=== PATIENT | female | born 1940 | race Caucasian/White ===

== ENCOUNTER → 2017-01-14 | Outpatient (CLI) | payer MEDICARE ==
--- NOTE | 2017-01-14 17:34 | US ---
EXAMINATION TYPE: US thyroid st tissue head/neck DATE OF EXAM: 01/14/2017 COMPARISON: 03/27/2016 CLINICAL HISTORY: E04.1 Thyroid Nodule. Thyroid nodule GLAND SIZE: Right Lobe: 4.5 x 3.0 x 2.6 cm Overall Parenchyma: heterogenous Left Lobe: 3.8 x 1.0 x 1.2 cm Overall Parenchyma: heterogeneous Isthmus Thickness: 0.3 cm NODULES RIGHT: # of nodules measured on right: 2 1. 0.5 X 0.3 x 0.4 cm hypoechoic solid nodule at the upper pole with well-defined margins. This nod ule is taller than wide and shows intranodular vascularity. Prior size: 0.6 x 0.3 x 0.6 cm 2. 3.0 X 2.8 x 2.9 cm hypoechoic solid nodule at the mid pole with well-defined margins. This nodule is wider than tall and shows intranodular vascularity. Prior size: 3.1 x 2.4 x 2.9 cm LEFT: # of nodules measured on left: 2 1. 0.5 X 0.4 x 0.4 cm hypoechoic cystic nodule at the upper pole with well-defined margins; present with microcalcifications. This nodule is wider than tall and shows no intranodular vascularity. Prior size: 0.5 x 0.4 x 0.4 cm 2. 0.6 X 0.8 x 0.7 cm isoechoic solid nodule at the lower pole with well-defined margins. This nodul e is taller than wide and shows intranodular vascularity. Prior size: 0.8 x 0.6 x 0.8 cm ISTHMUS: # of nodules measured in the isthmus: 0 Bilateral neck scanned, no evidence of lymphadenopathy. Posterior to right lobe: 1.3 x 0.9 x 1.5cm hypoechoic area and 0.8 x 0.5 x 1.2cm hypoechoic area seen , possible parathyroid. IMPRESSION: Multiple findings as above. There is a dominant nodule in the right thyroid lobe without change linda red to last exam. This is consistent with benign disease. No increasing thyroid abnormality seen sinc e last exam.
== END | disposition home or self-care (01) ==
LOC: RADUSWWP 16:34
PROVIDERS: ATTEND Otolaryngology
DX: E04.2 Nontoxic multinodular goiter (principal)
CPT/HCPCS: 76536

== ENCOUNTER → 2017-06-20 | Outpatient (CLI) | payer MEDICARE ==
[2017-06-20 13:09] VITALS: RESP 16; BMI 32.4
[2017-06-20 13:23] VITALS: BP 176/85; PULSE 60; TEMP 97.7
[2017-06-20 14:00] LABS: HGB 13.6 gm/dL (11.4-16.0); MCH 30.2 pg (25.0-35.0); MCHC 33.1 g/dL (31.0-37.0); MCV 91.2 fL (80.0-100.0); Mean Platelet Volume 7.6; Platelet Count 162 k/uL (150-450); RBC 4.49 m/uL (3.80-5.40); RDW 13.1 % (11.5-15.5); WBC 4.1 k/uL (3.8-10.6)
[2017-06-20 14:17] LABS: Partial Thromboplastin Time 26.4 sec (22.0-30.0); Prothrombin Time 10.2 sec (9.0-12.0)
[2017-06-20 14:18] LABS: ALT 39 U/L (9-52); AST 24 U/L (14-36); Albumin 4.2 g/dL (3.5-5.0); Alkaline Phosphatase 100 U/L (38-126); Anion Gap 8 mmol/L; Blood Urea Nitrogen 20 mg/dL (7-17); Carbon Dioxide 28 mmol/L (22-30); Chloride 105 mmol/L (98-107); Cholesterol 162 mg/dL (<200); Glucose 85 mg/dL (74-99); HDL Cholesterol 79 mg/dL (40-60); LDL Cholesterol,Calculated 70 mg/dL (0-99); Magnesium 2.2 mg/dL (1.6-2.3); Phosphorus 3.8 mg/dL (2.5-4.5); Potassium 4.4 mmol/L (3.5-5.1); Sodium 141 mmol/L (137-145); Total Bilirubin 0.8 mg/dL (0.2-1.3); Total Protein 7.1 g/dL (6.3-8.2); Triglycerides 66 mg/dL (<150)
[2017-06-20 18:49] LABS: Iron Saturation 17.24 (12.00-45.00)
[2017-06-20 18:59] LABS: Vitamin D 25 Hydroxy 20.5 ng/mL (30.0-100.0)
[2017-06-20 19:48] LABS: Parathyroid Hormone Intact 77.9 pg/mL (14.0-72.0)
[2017-06-20 22:43] LABS: Hemoglobin A1C 5.1 % (4.0-6.0)
[2017-06-21 12:49] LABS: Zinc, Serum 64 ug/dL (60-130)
[2017-06-24 06:45] LABS: Vitamin B1 59 ug/L (38-122)
[2017-06-24 08:39] LABS: Vitamin A 43 ug/dL (38-106)
[2017-06-25 16:45] LABS: Selenium 117 mcg/L (63-160)
--- NOTE | 2017-08-24 18:45 | P.PN ---
Subjective Progress Note Date: 06/20/17 DATE OF SERVICE: 06/20/2017 CHIEF COMPLAINT: Follow-up sleeve gastrectomy. HISTORY OF PRESENT ILLNESS: Eda Dover is a 76-year-old female who had a sleeve gastrectomy in February 2013. Her highest weight has been 270 pounds for a 5 foot, 6 inches frame. Her ideal body weight is 154 pounds. Today she comes in weighing 201 pounds. Her weight loss is unchanged since her last visit 1 year ago. She is now 4 years post op. Percent excess weight loss is 60%. Body mass index has been reduced from 43.6 down to 32.5. Since her last follow-up, she had troubles with thyroid nodules. She denies abdominal pain. She is eating well. No reports of hair loss. She is here for yearly bariatric follow-up. She has history of atrial fibrillation diagnosed at the initial time of her bariatric evaluation. She sees her program manager slp. PAST MEDICAL HISTORY: 1. Hypertension. 2. Gastroesophageal reflux disease, resolved. 3. Dyslipidemia. 4. Osteoarthritis. 5. Stress urinary incontinence. 6. Asthma. 7. Gastric ulcers, resolved. 8. Erosive esophagitis, resolved. 9. Atrial fibrillation. 10. Thyroid nodule. PAST SURGICAL HISTORY: 1. EGD. 2. Colonoscopy. 3. Sinus surgery. 4. Right foot surgery. 5. Left hand surgery. 6. Back surgery. 7. Hysterectomy. 8. Tubal ligation. 9. Sleeve gastrectomy. 10. Paraesophageal hiatal hernia repair. MEDICATIONS: 1. Eliquis 2. Multivitamin. 3. Magnesium oxide. 4. Coreg. 5. Vitamin D. 6. Calcium. 7. Aspirin. ALLERGIES: NAPROXEN. SOCIAL HISTORY: No active tobacco use. FAMILY HISTORY: Denies any stomach or esophageal cancers. REVIEW OF SYSTEMS: CONSTITUTIONAL: Maintained weight loss is 69 pounds. Her highest weight has been 270 pounds for a 5 foot, 6 inches frame. Her ideal body weight is 154 pounds. Today she comes in weighing 201 pounds. Percent excess weight loss is 60 %. Body mass index has been reduced from 43.7 down to 32.5. CARDIOVASCULAR: Atrial fibrillation. Now on Eliquis. Denies chest pain or heart attack. Off hypertensive medications. GASTROINTESTINAL: No gastroesophageal reflux disease. HEENT: Denies any troubles with vision or hearing. ENDOCRINE: No blood sugar glucose intolerance. Has thyroid nodules. RESPIRATORY: No reports of obstructive sleep apnea. No asthma MUSCULOSKELETAL: Has osteoarthritis improved. No rheumatoid arthritis. NEURO: No reports of migraines or headaches. PSYCH: No reports depression or suicidal ideation. HEMATOLOGIC: No reports of DVTs or pulmonary emboli. She is on blood thinner. PHYSICAL EXAM: VITAL SIGNS: 5 foot 6, 201 pounds. BMI 32.5. Vital Signs Temp 97.7 F 06/20/17 13:06 Pulse 60 06/20/17 13:06 Resp 16 06/20/17 13:06 BP 176/85 06/20/17 13:06 Pulse Ox HEENT: Supple without lymphadenopathy. No discrete firm nodules palpated along the thyroid gland. CARDIOVASCULAR: Irregular rate and irregular rhythm. 2+ radial pulses. ABDOMEN: Soft, nontender. No palpable incisional hernias. GENERAL: Well-developed, pleasant female in no acute distress. HEENT: No scleral icterus. Extraocular movements are intact. Hears conversational speech. CHEST: Nonlabored respirations. Equal bilateral excursions. MUSCULOSKELETAL: No clubbing, cyanosis or edema. NEURO: No focal or lateralizing signs. PSYCH: Appropriate affect. Alert and oriented to person, place and time. SKIN: Well perfused. Good skin turgor. STUDIES: Ultrasound of the neck was reviewed with her demonstrating a 3 cm nodule along the right thyroid gland stable. ASSESSMENT: 1. Morbid obesity due to exogenous caloric intake, now resolved. 2. Body mass index reduced from 43.7 to 32.5 3. Status post sleeve gastrectomy. 4. Hypertensive heart disease. 5. Osteoarthritis of the lower back, improved. 6. Panniculitis. 7. Gastroesophageal reflux disease, resolved. 8. Age of fibrillation. 9. Hypercholesterolemia. 10. Vitamin D deficiency. 11. Secondary hyperparathyroidism due to inadequate calcium intake. 12. History of thyroid nodules. PLAN: 1. Recommend bariatric metabolic panel. 2. She denies any active dysphagia from her thyroid nodule. We'll continue to observe. She is following up with her group counselor. 3. Recommend follow-up yearly. 4. At this time, panniculitis is stable. May delay surgical intervention. Laboratory Last Values WBC 4.1 k/uL (3.8-10.6) 06/20/17 13:36 RBC 4.49 m/uL (3.80-5.40) 06/20/17 13:36 Hgb 13.6 gm/dL (11.4-16.0) 06/20/17 13:36 Hct 41.0 % (34.0-46.0) 06/20/17 13:36 MCV 91.2 fL (80.0-100.0) 06/20/17 13:36 MCH 30.2 pg (25.0-35.0) 06/20/17 13:36 MCHC 33.1 g/dL (31.0-37.0) 06/20/17 13:36 RDW 13.1 % (11.5-15.5) 06/20/17 13:36 Plt Count 162 k/uL (150-450) 06/20/17 13:36 PT 10.2 sec (9.0-12.0) 06/20/17 13:36 INR 1.0 (<1.2) 06/20/17 13:36 APTT 26.4 sec (22.0-30.0) 06/20/17 13:36 Sodium 141 mmol/L (137-145) 06/20/17 13:36 Potassium 4.4 mmol/L (3.5-5.1) 06/20/17 13:36 Chloride 105 mmol/L (98-107) 06/20/17 13:36 Carbon Dioxide 28 mmol/L (22-30) 06/20/17 13:36 Anion Gap 8 mmol/L 06/20/17 13:36 BUN 20 mg/dL (7-17) H 06/20/17 13:36 Creatinine 0.90 mg/dL (0.52-1.04) 06/20/17 13:36 Est GFR (MDRD) Af Amer >60 (>60 ml/min/1.73 sqM) 06/20/17 13:36 Est GFR (MDRD) Non-Af >60 (>60 ml/min/1.73 sqM) 06/20/17 13:36 Glucose 85 mg/dL (74-99) 06/20/17 13:[address] Glu mg/dL 100 06/20/17 13:36 Hemoglobin A1c 5.1 % (4.0-6.0) 06/20/17 13:36 Calcium 10.0 mg/dL (8.4-10.2) 06/20/17 13:36 Phosphorus 3.8 mg/dL (2.5-4.5) 06/20/17 13:36 Magnesium 2.2 mg/dL (1.6-2.3) 06/20/17 13:36 Iron 55 ug/dL (50-170) 06/20/17 13:36 TIBC 319 ug/dL (228-460) 06/20/17 13:36 Iron Saturation 17.24 (12.00-45.00) 06/20/17 13:36 Ferritin 95.5 ng/mL (10.0-291.0) 06/20/17 13:36 Total Bilirubin 0.8 mg/dL (0.2-1.3) 06/20/17 13:36 AST 24 U/L (14-36) 06/20/17 13:36 ALT 39 U/L (9-52) 06/20/17 13:36 Alkaline Phosphatase 100 U/L (38-126) 06/20/17 13:36 Total Protein 7.1 g/dL (6.3-8.2) 06/20/17 13:36 Albumin 4.2 g/dL (3.5-5.0) 06/20/17 13:36 Prealbumin 23.0 mg/dL (18.0-42.0) 06/20/17 13:36 Triglycerides 66 mg/dL (<150) 06/20/17 13:36 Cholesterol 162 mg/dL (<200) 06/20/17 13:36 LDL Cholesterol, Calc 70 mg/dL (0-99) 06/20/17 13:36 HDL Cholesterol 79 mg/dL (40-60) H 06/20/17 13:36 Vitamin A 43 ug/dL (38-106) 06/20/17 13:36 Vitamin B1 59 ug/L (38-122) 06/20/17 13:36 Vitamin B12 474.0 pg/mL (200.0-944.0) 06/20/17 13:36 Vitamin D 25-Hydroxy 20.5 ng/mL (30.0-100.0) L 06/20/17 13:36 Folate 13.0 ng/mL 06/20/17 13:36 TSH 0.699 mIU/L (0.465-4.680) 06/20/17 13:36 PTH Intact 77.9 pg/mL (14.0-72.0) H 06/20/17 13:36 Copper 1128 ug/L (810-1990) 06/20/17 13:36 Selenium 117 mcg/L (63-160) 06/20/17 13:36 Zinc 64 ug/dL (60-130) 06/20/17 13:36 Objective - Vital Signs Vital signs: Vital Signs Temp Pulse Resp 16 06/20/17 13:06 BP Pulse Ox Intake & Output 06/19/17 06/20/17 06/20/17 18:59 06:59 18:59 Weight 91.229 kg - Labs CBC & Chem 7: 06/20/17 13:36 06/20/17 13:36
== END | disposition home or self-care (01) ==
LOC: BARWHC3 11:10
PROVIDERS: ATTEND Surgery Plastic and Reconstructive Surgery
DX: Z09 Encounter for follow-up examination after completed treatment for conditions other than malignant neoplasm (principal); I11.9 Hypertensive heart disease without heart failure; M79.3 Panniculitis, unspecified; I48.91 Unspecified atrial fibrillation; E78.00 Pure hypercholesterolemia, unspecified; E55.9 Vitamin D deficiency, unspecified; E21.3 Hyperparathyroidism, unspecified; E21.1 Secondary hyperparathyroidism, not elsewhere classified; E89.1 Postprocedural hypoinsulinemia; D50.9 Iron deficiency anemia, unspecified; K90.9 Intestinal malabsorption, unspecified; K76.9 Liver disease, unspecified; N19 Unspecified kidney failure; K50.90 Crohn's disease, unspecified, without complications; Z88.6 Allergy status to analgesic agent; Z79.01 Long term (current) use of anticoagulants; Z79.02 Long term (current) use of antithrombotics/antiplatelets; Z79.82 Long term (current) use of aspirin; Z98.890 Other specified postprocedural states; Z98.84 Bariatric surgery status
CPT/HCPCS: 84255; 84134; 84425; 80061; 80053; 82607; 82728; 82525; 82746; 83540; 83550; 83735; 84100; 84443; 84590; 84630; 85027; 85610; 85730; 82306; 83970; 83036; 36415; G0463; 99211